=== PATIENT | male | born 1975 | race Caucasian/White ===

== ENCOUNTER 2016-08-02 08:01 | Day surgery (SDC) | payer MEDICARE, OTHER ==
--- NOTE | ~2016-08-02 | EGD ---
EGD REPORT [facility] [address] [address] NAME: FLAKITA KOLB : [birth year] STATUS : REG [facility] PAT#: [id number] AGE: 40 ADM/REG DATE : 08/02/16 MR#: [id number] REPORT SERV DATE: 08/02/16 DICTATED BY: CODY JESUS DATE: 08/02/16 REPORT STATUS : Draft [facility]ANSCRIBED BY: [facility] DATE: 08/02/16 Endoscopy Center Patient Name: Flakita Kolb Date of : 1975 Attending MD: CODY JESUS MD Procedure Date No Time: 08/02/2016 Procedure: Upper GI endoscopy Indications: Dysphagia Referring MD: BANDAR PATEL III, MD Medicines: Propofol per Anesthesia Complications: No immediate complications. Procedure: Pre-Anesthesia Assessment: - ASA Grade Assessment: III - A patient with severe systemic disease. After obtaining informed consent, the endoscope was passed under direct vision. Throughout the procedure, the patient's blood pressure, pulse, and oxygen saturations were monitored continuously. The GIF H190 [id number] was introduced through the mouth, and advanced to the second part of duodenum. The upper GI endoscopy was accomplished without difficulty. The patient tolerated the procedure well. Findings: A benign-appearing, intrinsic mild stenosis was found in the lower third of the esophagus and was traversed. A guidewire was placed and the scope was withdrawn. Dilation was performed with a Savary dilator with no resistance at 54 Fr. Savary-Paredes Grade II (multiple lesions and folds, noncircumferential, with or without confluence) esophagitis with no bleeding was found in the lower third of the esophagus. A small hiatus hernia was present. The exam of the stomach was otherwise normal. The examined duodenum was normal. Estimated blood loss: none. Impression: - Benign-appearing esophageal stricture. Dilated. - Savary-Paredes Grade II reflux esophagitis. - Hiatus hernia. - Normal examined duodenum. Recommendation: - Discharge patient to home (ambulatory). - Return to previous diet today. - Use Protonix (pantoprazole) 40 mg PO daily today. - Repeat the upper endoscopy in 6 weeks to check healing. - The findings and recommendations were discussed with EGD REPORT [address] [address] NAME: FLAKITA KOLB : [birth year] STATUS : REG [facility] PAT#: [id number] AGE: 40 ADM/REG DATE : 08/02/16 MR#: [id number] REPORT SERV DATE: 08/02/16 DICTATED BY: CODY JESUS DATE: 08/02/16 REPORT STATUS : Draft TRANSCRIBED BY: [employer] DATE: 08/02/16 the patient and their family. - After the procedure, if you experience any pain in abdomen or chest,shortness of breath,fever,chills,blood in stool,rectal bleeding,vomiting of any material,nausea,black stools or weakness or dizziness, GO TO THE EMERGENCY IMMEDIATELY!!!!!!!!! Procedure Code(s): --- Professional --- 53192, Esophagogastroduodenoscopy, flexible, transoral; with insertion of guide wire followed by passage of dilator(s) through esophagus over guide wire Diagnosis Code(s): --- Professional --- K22.2, Esophageal obstruction K21.0, Gastro-esophageal reflux disease with esophagitis K44.9, Diaphragmatic hernia without obstruction or gangrene R13.10, Dysphagia, unspecified CPT copyright 2013 [employer]. All rights reserved. The codes documented in this report are preliminary and upon human resources benefits specialist review may be revised to meet current compliance requirements. Cody Jesus MD CODY JESUS MD 08/02/2016 10:33 AM This report has been signed electronically. Number of Addenda: 0 Note Initiated On: 08/02/2016 10:10 AM Scope Withdrawal Time 0 hours 0 minutes 0 seconds [address] [place] [address]
[~2016-08-02 08:01] MED LIST: ACET500CAP PO; ATEN100 PO; CELEXA40 MG PO; FLEX PO; HYDROCHLOROT12.5 MG PO; NEUR300 PO; NORV10 PO; PROTONIX PO; [UNRECOGNIZED DRUG - REMARK]
== END 2016-08-02 23:59 | disposition home health service (06) ==
LOC: DMU 08:01
PROVIDERS: Internal Medicine Gastroenterology
PROC: 0D738ZZ Dilation of Lower Esophagus, Via Natural or Artificial Opening Endoscopic (ICD-10-PCS; principal; 2016-08-02 11:00)
DX: K22.2 Esophageal obstruction (principal); K21.0 Gastro-esophageal reflux disease with esophagitis; K44.9 Diaphragmatic hernia without obstruction or gangrene; I10 Essential (primary) hypertension; F17.210 Nicotine dependence, cigarettes, uncomplicated; Z98.890 Other specified postprocedural states; Z80.0 Family history of malignant neoplasm of digestive organs; Z88.5 Allergy status to narcotic agent

== ENCOUNTER 2016-09-13 08:16 | Day surgery (SDC) | payer BC, OTHER ==
--- NOTE | ~2016-09-13 | EGD ---
EGD REPORT [facility] [address] [address] NAME: FLAKITA KOLB : [birth year] STATUS : REG [facility] PAT#: [id number] AGE: 41 ADM/REG DATE : 09/13/16 MR#: [id number] REPORT SERV DATE: 09/13/16 DICTATED BY: CODY JESUS DATE: 09/13/16 REPORT STATUS : Draft [facility]: [facility] DATE: 09/13/16 Endoscopy Center Patient Name: Flakita Kolb Date of : 1975 Attending MD: CODY JESUS MD Procedure Date No Time: 09/13/2016 Procedure: Upper GI endoscopy Indications: Follow-up of gastro-esophageal reflux disease Referring MD: BANDAR PATEL III, MD Medicines: Propofol per Anesthesia Complications: No immediate complications. Procedure: Pre-Anesthesia Assessment: - ASA Grade Assessment: III - A patient with severe systemic disease. After obtaining informed consent, the endoscope was passed under direct vision. Throughout the procedure, the patient's blood pressure, pulse, and oxygen saturations were monitored continuously. The GIF H190 [id number] was introduced through the mouth, and advanced to the second part of duodenum. The upper GI endoscopy was accomplished without difficulty. The patient tolerated the procedure well. Findings: There is no endoscopic evidence of esophagitis or stricture in the entire esophagus. A small hiatus hernia was present. The examined duodenum was normal. Impression: - Hiatus hernia. - Normal examined duodenum. Procedure Code(s): --- Professional --- 44483, Esophagogastroduodenoscopy, flexible, transoral; diagnostic, including collection of specimen(s) by brushing or washing, when performed (separate procedure) Diagnosis Code(s): --- Professional --- K44.9, Diaphragmatic hernia without obstruction or gangrene K21.9, Gastro-esophageal reflux disease without esophagitis CPT copyright 2013 [employer]. All rights reserved. EGD REPORT [facility] [address] [place] [address]. [address] NAME: FLAKITA KOLB : [birth year] STATUS : REG [facility] PAT#: [id number] AGE: 41 ADM/REG DATE : 09/13/16 MR#: [id number] REPORT SERV DATE: 09/13/16 DICTATED BY: CODY JESUS. DATE: 09/13/16 REPORT STATUS : Draft TRANSCRIBED BY: [employer] DATE: 09/13/16 The codes documented in this report are preliminary and upon flight service agent review may be revised to meet current compliance requirements. Cody Jesus MD CODY JESUS MD 09/13/2016 9:53 AM This report has been signed electronically. Number of Addenda: 0 Note Initiated On: 09/13/2016 9:32 AM Scope Withdrawal Time 0 hours 0 minutes [address] [place] [id number]
== END 2016-09-13 23:59 | disposition home or self-care (01) ==
LOC: DMU 08:16
PROVIDERS: Internal Medicine Gastroenterology
PROC: 0DJ08ZZ Inspection of Upper Intestinal Tract, Via Natural or Artificial Opening Endoscopic (ICD-10-PCS; principal; 2016-09-13 10:00)
DX: K21.9 Gastro-esophageal reflux disease without esophagitis (principal); K44.9 Diaphragmatic hernia without obstruction or gangrene; F41.9 Anxiety disorder, unspecified; G62.9 Polyneuropathy, unspecified; F17.210 Nicotine dependence, cigarettes, uncomplicated; G71.0 Muscular dystrophy; I10 Essential (primary) hypertension; Z88.5 Allergy status to narcotic agent; Z79.899 Other long term (current) drug therapy; Z98.1 Arthrodesis status; Z98.890 Other specified postprocedural states; Z90.89 Acquired absence of other organs